=== PATIENT | female | born 1965 | race Caucasian/White ===

== ENCOUNTER 2019-04-27 15:12 | Inpatient (IN) | payer OTHER ==
--- NOTE | 2019-04-27 15:34 | PDOC ---
Attending Attestation - Resident Resident Name: Blake Estrella - ED Attending Attestation I have performed the following: I have examined & evaluated the patient, The case was reviewed & discussed with the resident, I agree w/resident's findings & plan, Exceptions are as noted
[2019-04-27 15:35] VITALS: BMI 36.4
[2019-04-27] MEDS ORDERED: ACETAMINOPHEN 1000 MG/100 ML VIAL (NON FORMULARY) IVPB ONE (15:58)
[2019-04-27] MEDS ORDERED: SODIUM CHLORIDE 1,000 ML IV SCH (16:00)
[2019-04-27] MEDS ORDERED: ACETAMINOPHEN INJECTION 100 ML IVPB ONE (16:30)
[2019-04-27 16:47] LABS: INR 1.05 (0.82-1.09); PROTHROMBIN TIME (PATIENT) 11.7 SEC (10.2-13.0)
[2019-04-27 16:52] LABS: ALBUMIN 3.3 g/dl (3.4-5.0); BILIRUBIN,TOTAL 0.3 mg/dl (0.2-1); CALCIUM 9.5 mg/dl (8.5-10); CREATININE 0.6 mg/dl (0.55-1.3); TOT PROT 6.3 g/dl (6.4-8.2)
[2019-04-27 16:54] LABS: BASO % 0.4 % (0-2.0); EOS % 1.2 % (0-4.5); HEMATOCRIT 37.5 % (32.4-45.2); HEMOGLOBIN 12.4 GM/dl (10.7-15.3); LYMPH % 30.5 % (8-40); MCH 30.5 pg (25.7-33.7); MCHC 33.2 g/dl (32.0-36.0); MEAN CELL VOLUME 91.7 fl (80-96); MONO % 3.8 % (3.8-10.2); NEUT % 64.1 % (42.8-82.8); PLATELET COUNT 298 K/MM3 (134-434); RBC 4.08 M/mm3 (3.60-5.2); RDW 15.2 % (11.6-15.6); WHITE BLOOD COUNT 8.7 K/mm3 (4.0-10.8)
--- NOTE | 2019-04-27 16:54 | PDOC ---
History of Present Illness - General Chief Complaint: Pain Stated Complaint: LOWER ABDOMINAL PAIN 3 DAYS Time Seen by Provider: 04/27/19 15:14 - History of Present Illness Initial Comments: 04/27/19 16:51 Chief complaint: Abdominal pain HPI: Mid abdominal pain for 3 days, becoming more severe. Nausea but no vomiting. Increasing abdominal girth, with obstipation, although she did pass a small amount of stool this morning. History of severe diverticulitis 5 years ago requiring hospitalization but no surgery. Multiple ventral hernia repairs. No history of bowel obstruction. Review of systems: Denies fever/chills, headache, URI symptoms, sore throat, cough, chest pain, shortness of breath, hematemesis, melena, bloody stool, vomiting. Taking small amounts of p.o. fluid. Admits mild nausea, pain in her abdomen with urination, though no manisha dysuria, no vaginal bleeding or discharge now, though she has had a light menses for the past 3 months after the cessation of menses 8 months before. Remainder of systems reviewed and negative Past medical history: Ventral hernia repairs x2, diverticulitis, non-insulin- dependent diabetes, hypertension. Despite her illnesses, she has no doctor and takes no medications. Social history: Patient is a nurse, reluctant to seek medical care, heavy lifetime smoker who supposedly quit 2 weeks ago, occasional social alcohol, no other drugs. stable home and family. Family history: Reviewed and noncontributory including early coronary artery disease, diabetes, GI disease, cancer Physical exam: Alert and oriented severely obese in mild to moderate distress due to abdominal pain but cooperative Afebrile, vital signs normal No pallor or icterus. PERRLA, fundi benign, ENT clear Neck supple without bruit mass or nodes Lungs clear to P&A with full breath sounds bilaterally, no wheezes rales or rhonchi CV regular without murmur rub or gallop pulses full and symmetric no JVD or edema no bruits Abdomen distended, but there are normal bowel sounds. Midline scar from multiple hernia repairs. Tenderness to palpation in the mid abdomen and all 4 quadrants, no definite localization but probably more severe in the left lower quadrant. There is a suggestion of guarding and rebound. Neurological intact Extremities normal Skin clear, no rash, adequate turgor Impression: Abdominal distention and tenderness, multiple prior surgeries, history of diverticulitis. Possible partial bowel obstruction, recurrent diverticulitis, or appendicitis, any of these conditions with or without perforation. Less likely would be a severe gastroenteritis, pyelonephritis, renal colic, mesenteric excess anemia, or recurrent hernia. Plan: Labs, CT, fluids and analgesics, further evaluation and treatment depending on results. 04/27/19 17:09 04/27/19 17:53 Past History - Past Medical History Allergies/Adverse Reactions: Allergies Allergy/AdvReac Type Severity Reaction Status Date / Time No Known Allergies Allergy Unverified 04/27/19 15:14 Home Medications: Ambulatory Orders Lansoprazole [Prevacid] 40 mg PO DAILY 04/28/19 Levothyroxine Sodium [Synthroid] 50 mcg PO DAILY 04/28/19 Lisinopril [Zestril] 40 mg PO DAILY 04/28/19 metFORMIN HCL [Metformin HCl] 500 mg PO BID 04/28/19 COPD: No Diabetes: Yes GI Disorders: Yes (DIVERTICULOSIS) HTN: Yes - Surgical History Cholecystectomy: Yes - Psycho Social/Smoking Cessation Hx Smoking History: Current every day smoker Number of Cigarettes Smoked Daily: 5 Information on smoking cessation initiated: Yes Hx Alcohol Use: No Drug/Substance Use Hx: No *Physical Exam - Vital Signs Last Vital Signs Temp Pulse Resp BP Pulse Ox 98.4 F 84 20 121/77 96 04/27/19 15:13 04/27/19 15:13 04/27/19 15:13 04/27/19 15:13 04/27/19 15:13 ED Treatment Course - LABORATORY CBC & Chemistry Diagram: 04/27/19 16:25 04/27/19 16:25 - ADDITIONAL ORDERS Additional order review: Laboratory Results 04/27/19 04/27/19 04/27/19 16:25 16:20 16:20 PT with INR 11.7 INR 1.05 Urine Color Yellow Urine Appearance Clear Urine pH 6.5 Urine Protein Negative Urine Glucose (UA) Negative Urine Ketones Trace Urine Blood Negative Urine Nitrite Negative Urine Bilirubin Negative Urine Urobilinogen 0.2 Ur Leukocyte Esterase Negative Urine HCG, Qual Negative - RADIOLOGY Radiology Studies Ordered: Category Date Time Status ABDOMEN & PELVIS CT W/O CONTR [CT] Stat CT Scan 04/27/19 15:58 Ordered - Medications Given in the ED: ED Medications Discontinued Medications Generic Name Dose Route Start Last Admin Trade Name Freq PRN Reason Stop Dose Admin Acetaminophen 1,000 mg 04/27/19 15:58 04/27/19 16:44 Ofirmev Injection - IVPB 04/27/19 15:59 1,000 mg ONCE ONE Administration Medical Decision Making - Medical Decision Making 04/27/19 18:56 Serum potassium is 2.8. Glucose is 149. Otherwise CBC chemistries and urine are without significant abnormalities. Potassium supplementation begun in the event that her symptoms are due to intestinal ileus from her low electrolytes. CT scan is pending. 04/27/19 18:57 Pain is controlled while resting comfortably on the stretcher. Movement or walking, however, exaggerates the pain. Signed out to Dr. Rivas at 7 PM pending results of CT and further medical evaluation. Discharge - Discharge Information Problems reviewed: Yes Clinical Impression/Diagnosis: Acute diverticulitis Condition: Stable - Admission Yes - Follow up/Referral - Patient Discharge Instructions - Post Discharge Activity
[2019-04-27 16:57] LABS: POTASSIUM 2.8 mmol/L (3.5-5.1)
[2019-04-27] MEDS ORDERED: KCL 10 MEQ IVPB 30 MEQ/300 ML INFUS.BAG IVPB ONE (17:32)
[2019-04-27] MEDS: KCL 10 MEQ IVPB 10 MEQ/100 ML INFUS.BAG IVPB SCH ×3 (17:38→19:53)
[2019-04-27] MEDS ORDERED: PIPERACILLIN/TAZOB 4.5 GM 4.5 GM in DEXTROSE 5%-WATER 100 ML IVPB ONE (20:57)
[2019-04-27] MEDS ORDERED: PIPERACILLIN/TAZOBACTAM 4.5 GM VIAL IVPB ONE (21:00)
[2019-04-27] MEDS ORDERED: ACETAMINOPHEN 1000 MG/100 ML VIAL (NON FORMULARY) IVPB PRN (21:49)
--- NOTE | 2019-04-27 22:01 | PDOC ---
*Physical Exam - Vital Signs Last Vital Signs Temp Pulse Resp BP Pulse Ox 98.4 F 78 16 134/83 99 04/27/19 20:54 04/27/19 20:54 04/27/19 20:54 04/27/19 20:54 04/27/19 20:54 Heart Score/ECG Review #1 ECG reviewed & interpreted by me at: 22:01 General ECG Interpretation: Sinus Rhythm, Normal Rate (76), Normal Intervals ( qtc 459), No acute ischemic changes ED Treatment Course - LABORATORY CBC & Chemistry Diagram: 04/27/19 16:25 04/27/19 16:25 - ADDITIONAL ORDERS Additional order review: Laboratory Results 04/27/19 04/27/19 04/27/19 16:25 16:25 16:25 PT with INR 11.7 INR 1.05 Sodium 138 Potassium 2.8 L* Chloride 100 Carbon Dioxide 26 Anion Gap 12 BUN 4.0 L Creatinine 0.6 Est GFR (CKD-EPI)AfAm 120.61 Est GFR (CKD-EPI)NonAf 104.06 Random Glucose 149 H Lactic Acid 1.0 Calcium 9.5 Total Bilirubin 0.3 AST 16 ALT 12 L Alkaline Phosphatase 62 Total Protein 6.3 L Albumin 3.3 L Lipase Urine Color Urine Appearance Urine pH Urine Protein Urine Glucose (UA) Urine Ketones Urine Blood Urine Nitrite Urine Bilirubin Urine Urobilinogen Ur Leukocyte Esterase Urine HCG, Qual 04/27/19 04/27/19 04/27/19 16:25 16:20 16:20 PT with INR INR Sodium Potassium Chloride Carbon Dioxide Anion Gap BUN Creatinine Est GFR (CKD-EPI)AfAm Est GFR (CKD-EPI)NonAf Random Glucose Lactic Acid Calcium Total Bilirubin AST ALT Alkaline Phosphatase Total Protein Albumin Lipase 55 L Urine Color Yellow Urine Appearance Clear Urine pH 6.5 Urine Protein Negative Urine Glucose (UA) Negative Urine Ketones Trace Urine Blood Negative Urine Nitrite Negative Urine Bilirubin Negative Urine Urobilinogen 0.2 Ur Leukocyte Esterase Negative Urine HCG, Qual Negative 04/27/19 16:25 RBC 4.08 MCV 91.7 MCHC 33.2 RDW 15.2 MPV 8.0 Neutrophils % 64.1 Lymphocytes % 30.5 Monocytes % 3.8 Eosinophils % 1.2 Basophils % 0.4 - Medications Given in the ED: ED Medications Discontinued Medications Generic Name Dose Route Start Last Admin Trade Name Freq PRN Reason Stop Dose Admin Acetaminophen 1,000 mg 04/27/19 15:58 04/27/19 16:44 Ofirmev Injection - IVPB 04/27/19 15:59 1,000 mg ONCE ONE Administration Potassium Chloride 10 meq in 100 mls @ 100 mls/hr 04/27/19 17:15 04/27/19 19: 53 Potassium Chloride 10 Meq Premix Ivpb - IVPB 04/27/19 20:14 100 mls/hr Q60M BILLY Administration Piperacillin Sod/Tazobactam 100 mls @ 200 mls/hr 04/27/19 20:57 04/27/19 21: 08 Sod 4.5 gm/ Dextrose IVPB 04/27/19 21:26 200 mls/hr ONCE ONE Administration Protocol Oxycodone/Acetaminophen 1 combo 04/27/19 21:46 04/27/19 21:56 Percocet 5/325 - PO 04/27/19 21:47 1 combo ONCE ONE Administration Medical Decision Making - Medical Decision Making 04/27/19 22:00 Vital signs stable, hemodynamically stable Patient is well-appearing Received signout on this 53-year-old female with history of diverticulitis presenting with symptoms of recurrent diverticulitis, labs were within normal limits except for hypokalemia which was repleted, urinalysis was clear. Plan at signout was to follow-up CT scan results. CT shows acute sigmoid diverticulitis with possible phlegmon versus abscess. Given history of recurrent diverticulitis, treated with IV antibiotics and admitted for further care. Signout given to OSIEL Cuellar, accepted for inpatient admission by Dr. Arteaga. Discharge - Discharge Information Problems reviewed: Yes Clinical Impression/Diagnosis: Acute diverticulitis Condition: Stable - Admission Yes - Follow up/Referral - Patient Discharge Instructions - Post Discharge Activity
[2019-04-27] MEDS: POTASSIUM CHLORIDE TABS 20 MEQ TABLET.ER (FP) PO SCH (23:56)
[2019-04-28] MEDS: morphine CARPU-JECT 2 MG/1 ML DISP.SYRIN IVPUSH PRN ×3 (01:01→17:00)
[2019-04-28] MEDS: POTASSIUM CHLORIDE TABS 20 MEQ TABLET.ER (FP) PO SCH (03:03)
[2019-04-28] MEDS ORDERED: PIPERACILLIN/TAZOBACTAM 3.375 GM VIAL IVPB ONE ×3 (03:06→16:33)
[2019-04-28] MEDS ORDERED: DEXTROSE 5%-WATER - 50 ML IVPB ONE ×2 (03:06→09:12)
[2019-04-28] MEDS: PIPERACILLIN/TAZOB 3.375 GM 3.375 GM in DEXTROSE 5%-WATER - 50 ML IVPB SCH ×2 (04:43→10:00)
[2019-04-28] MEDS ORDERED: PIPERACILLIN/TAZOB 3.375 GM 3.375 GM in SODIUM CHLORIDE 50 ML IVPB SCH (05:00)
[2019-04-28] MEDS: HEPARIN NA (PORCINE) 5,000 UNITS/ML 1ML VIAL SQ SCH ×3 (06:15→21:26)
[2019-04-28] MEDS ORDERED: LISINOPRIL 20 MG TABLET (FP) PO ONE ×2 (06:38→07:00)
[2019-04-28] MEDS ORDERED: metFORMIN HCL 500 MG TABLET (FP) PO SCH (07:00)
[2019-04-28] MEDS: LEVOTHYROXINE NA 50 MCG TABLET (FP) PO SCH (07:04)
[2019-04-28 07:31] LABS: BASO % 0.7 % (0-2.0); EOS % 2.2 % (0-4.5); HEMOGLOBIN 11.9 GM/dl (10.7-15.3); LYMPH % 34.6 % (8-40); MCH 31.3 pg (25.7-33.7); MCHC 33.9 g/dl (32.0-36.0); MEAN CELL VOLUME 92.1 fl (80-96); MEAN PLT VOLUME 8.1 fl (7.5-11.1); MONO % 8.1 % (3.8-10.2); NEUT % 54.4 % (42.8-82.8); PLATELET COUNT 274 K/MM3 (134-434); RDW 15.2 % (11.6-15.6)
[2019-04-28 07:39] LABS: BILIRUBIN,TOTAL 0.9 mg/dl (0.2-1); CALCIUM 8.8 mg/dl (8.5-10); CREATININE 0.6 mg/dl (0.55-1.3); MAGNESIUM 1.4 mg/dL (1.8-2.4); POTASSIUM 3.8 mmol/L (3.5-5.1); TOT PROT 5.6 g/dl (6.4-8.2)
--- NOTE | 2019-04-28 08:31 | HP ---
CHIEF COMPLAINT: Abdominal pain PCP: None HISTORY OF PRESENT ILLNESS: The patient is 53 year-old female with a PMH significant for HTN, diverticulitis (two prevous bouts 1994, 2009, no surgeries),Type II NIDDM, and hypothyroidism. Presented to the ED with 3 days of diffuse lower abdominal pain , similar to previous bouts of diverticulitis. Denies nausea, vomiting. Denies fever, sweats, chills. One episode of diarrhea early today. 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 Smoking: Current every day smoker Alcohol: Occasional ETOH use. Drugs: None reported. Family history: Mother 86 cardiac issues Father 74 complications from surgery Sister 63 liver cancer Allergies No Known Allergies Allergy (Unverified 04/27/19 15:14) HOME MEDICATIONS: Home Medications Medication Instructions Recorded Lansoprazole [Prevacid] 40 mg PO DAILY 04/28/19 Levothyroxine Sodium [Synthroid] 50 mcg PO DAILY 04/28/19 Lisinopril [Zestril] 40 mg PO DAILY 04/28/19 metFORMIN HCL [Metformin HCl] 500 mg PO BID 04/28/19 REVIEW OF SYSTEMS CONSTITUTIONAL: Absent: fever, chills, diaphoresis, generalized weakness, malaise, loss of appetite, weight change HEENT: Absent: rhinorrhea, nasal congestion, throat pain, throat swelling, difficulty swallowing, mouth swelling, ear pain, eye pain, visual changes CARDIOVASCULAR: Absent: chest pain, syncope, palpitations, irregular heart rate, lightheadedness , peripheral edema RESPIRATORY: Absent: cough, shortness of breath, dyspnea with exertion, orthopnea, wheezing, stridor, hemoptysis GASTROINTESTINAL:+abdominal pain, diarrhea x 1 episode Absent: abdominal distension, vomiting, diarrhea, constipation, melena, hematochezia GENITOURINARY: Absent: dysuria, frequency, urgency, hesitancy, hematuria, flank pain, genital pain MUSCULOSKELETAL: Absent: myalgia, arthralgia, joint swelling, back pain, neck pain SKIN: Absent: rash, itching, pallor HEMATOLOGIC/IMMUNOLOGIC: Absent: easy bleeding, easy bruising, lymphadenopathy, frequent infections ENDOCRINE: Absent: unexplained weight gain, unexplained weight loss, heat intolerance, cold intolerance NEUROLOGIC: Absent: headache, focal weakness or paresthesias, dizziness, unsteady gait, seizure, mental status changes, bladder or bowel incontinence PSYCHIATRIC: Absent: anxiety, depression, suicidal or homicidal ideation, hallucinations. PHYSICAL EXAMINATION Vital Signs - 24 hr 04/27/19 04/27/19 04/27/19 15:13 20:54 23:16 Temperature 98.4 F 98.4 F 98.8 F Pulse Rate 84 Pulse Rate [ 78 75 Left Radial] Respiratory 20 16 14 Rate Blood Pressure 121/77 Blood Pressure 134/83 147/85 [Right Arm] O2 Sat by Pulse 96 99 98 Oximetry (%) 04/27/19 04/28/19 04/28/19 23:30 00:10 04:00 Temperature 98.7 F 98.2 F Pulse Rate 74 74 Pulse Rate [ Left Radial] Respiratory 18 20 Rate Blood Pressure 157/77 155/92 Blood Pressure [Right Arm] O2 Sat by Pulse 95 94 L Oximetry (%) GENERAL: Awake, alert, and fully oriented, in no acute distress. HEAD: Normal with no signs of trauma. EYES: Pupils equal, round and reactive to light, extraocular movements intact, sclera anicteric, conjunctiva clear. LUNGS: Breath sounds equal, clear to auscultation bilaterally. No wheezes, and no crackles. No accessory muscle use. HEART: Regular rate and rhythm, normal S1 and S2 ABDOMEN: Soft, distended, diffuse tenderness, focal tenderness over LLQ, normoactive bowel sounds MUSCULOSKELETAL: Normal range of motion at all joints. No bony deformities or tenderness. No CVA tenderness. UPPER EXTREMITIES: 2+ pulses, warm, well-perfused. No cyanosis. No clubbing. No peripheral edema. LOWER EXTREMITIES: 2+ pulses, warm, well-perfused. No calf tenderness. No peripheral edema. NEUROLOGICAL: Cranial nerves II-XII intact. Normal speech. Normal gait. PSYCHIATRIC: Cooperative. Good eye contact. Appropriate mood and affect. SKIN: Warm, dry, normal turgor Laboratory Results - last 24 hr 04/27/19 04/27/19 04/27/19 16:20 16:20 16:25 WBC RBC Hgb Hct MCV MCH MCHC RDW Plt Count MPV Absolute Neuts (auto) Neutrophils % Lymphocytes % Monocytes % Eosinophils % Basophils % PT with INR INR Sodium Potassium Chloride Carbon Dioxide Anion Gap BUN Creatinine Est GFR (CKD-EPI)AfAm Est GFR (CKD-EPI)NonAf POC Glucometer Random Glucose Lactic Acid Calcium Magnesium Total Bilirubin AST ALT Alkaline Phosphatase Total Protein Albumin Lipase 55 L Urine Color Yellow Urine Appearance Clear Urine pH 6.5 Urine Protein Negative Urine Glucose (UA) Negative Urine Ketones Trace Urine Blood Negative Urine Nitrite Negative Urine Bilirubin Negative Urine Urobilinogen 0.2 Ur Leukocyte Esterase Negative Urine HCG, Qual Negative 04/27/19 04/27/19 04/27/19 16:25 16:25 16:25 WBC 8.7 RBC 4.08 Hgb 12.4 Hct 37.5 MCV 91.7 MCH 30.5 MCHC 33.2 RDW 15.2 Plt Count 298 MPV 8.0 Absolute Neuts (auto) 5.6 Neutrophils % 64.1 Lymphocytes % 30.5 Monocytes % 3.8 Eosinophils % 1.2 Basophils % 0.4 PT with INR INR Sodium 138 Potassium 2.8 L* Chloride 100 Carbon Dioxide 26 Anion Gap 12 BUN 4.0 L Creatinine 0.6 Est GFR (CKD-EPI)AfAm 120.61 Est GFR (CKD-EPI)NonAf 104.06 POC Glucometer Random Glucose 149 H Lactic Acid 1.0 Calcium 9.5 Magnesium Total Bilirubin 0.3 AST 16 ALT 12 L Alkaline Phosphatase 62 Total Protein 6.3 L Albumin 3.3 L Lipase Urine Color Urine Appearance Urine pH Urine Protein Urine Glucose (UA) Urine Ketones Urine Blood Urine Nitrite Urine Bilirubin Urine Urobilinogen Ur Leukocyte Esterase Urine HCG, Qual 04/27/19 04/28/19 04/28/19 16:25 06:29 06:52 WBC 7.0 RBC 3.80 Hgb 11.9 Hct 35.0 MCV 92.1 MCH 31.3 MCHC 33.9 RDW 15.2 Plt Count 274 MPV 8.1 Absolute Neuts (auto) 3.8 Neutrophils % 54.4 Lymphocytes % 34.6 Monocytes % 8.1 Eosinophils % 2.2 Basophils % 0.7 PT with INR 11.7 INR 1.05 Sodium Potassium Chloride Carbon Dioxide Anion Gap BUN Creatinine Est GFR (CKD-EPI)AfAm Est GFR (CKD-EPI)NonAf POC Glucometer 118 Random Glucose Lactic Acid Calcium Magnesium Total Bilirubin AST ALT Alkaline Phosphatase Total Protein Albumin Lipase Urine Color Urine Appearance Urine pH Urine Protein Urine Glucose (UA) Urine Ketones Urine Blood Urine Nitrite Urine Bilirubin Urine Urobilinogen Ur Leukocyte Esterase Urine HCG, Qual 04/28/19 06:52 WBC RBC Hgb Hct MCV MCH MCHC RDW Plt Count MPV Absolute Neuts (auto) Neutrophils % Lymphocytes % Monocytes % Eosinophils % Basophils % PT with INR INR Sodium 139 Potassium 3.8 Chloride 102 Carbon Dioxide 28 Anion Gap 9 BUN 5.0 L Creatinine 0.6 Est GFR (CKD-EPI)AfAm 120.61 Est GFR (CKD-EPI)NonAf 104.06 POC Glucometer Random Glucose 124 H Lactic Acid Calcium 8.8 Magnesium 1.4 L Total Bilirubin 0.9 AST 33 ALT 15 Alkaline Phosphatase 58 Total Protein 5.6 L Albumin 3.0 L Lipase Urine Color Urine Appearance Urine pH Urine Protein Urine Glucose (UA) Urine Ketones Urine Blood Urine Nitrite Urine Bilirubin Urine Urobilinogen Ur Leukocyte Esterase Urine HCG, Qual ASSESSMENT/PLAN The patient is 53 year-old female with a PMH significant for HTN, diverticulitis , Type II NIDDM, and hypothyroidism. Admitted for acute sigmoid diverticulitis. Acute sigmoid diverticulitis with abscess --04/27 CTAP: acute sigmoid diverticulis with phlegmon/abscess --two previous episodes 1994, 2008 (no surgeries) --start Zosyn --IV fluids --ID to follow --surgery to follow Hypertension --issue of medication compliance, "runs high" at home --continue lisinopril Type II NIDDM --Novolog sliding scale coverge Hypothyroidism --continue levothyroxine --thyroid studies pending Hypomagnesemia --replete FEN Fluids: NS@125mL/hr Electrolytes: replete as indicated Nutrition: NPO DVT prophylaxis: subq heparin Dispo: continues to require inpatient care. Full code. Visit type - Emergency Visit Emergency Visit: Yes ED Registration Date: 04/28/19 Care time: The patient presented to the Emergency Department on the above date and was hospitalized for further evaluation of their emergent condition. - New Patient This patient is new to me today: Yes Date on this admission: 04/28/19 - Critical Care Critical Care patient: No
[2019-04-28 08:34] LABS: INR 1.13 (0.82-1.09); PROTHROMBIN TIME (PATIENT) 12.6 SEC (10.2-13.0)
[2019-04-28] MEDS ORDERED: MAGNESIUM SULF 50% (8.12 MEQ/2 ML-1 GM VIAL) IVPB ONE (10:23)
[2019-04-28] MEDS: LISINOPRIL 20 MG TABLET (FP) PO SCH (10:45)
[2019-04-28] MEDS ORDERED: MAGNESIUM SULFATE IN WATER 2 GM/50 ML IVPB IVPB ONE (11:00)
[2019-04-28] MEDS ORDERED: SODIUM CHLORIDE 1,000 ML IV SCH (11:30)
[2019-04-28] MEDS ORDERED: oxyCODONE HCL 5 MG TABLET PO PRN (12:34)
[2019-04-28] MEDS: INSULIN (NOVOLOG) ASPART 100 UNITS/ML 10ML VIAL SQ SCH ×3 (12:58→22:21)
--- NOTE | 2019-04-28 13:52 | CON.ID ---
Consult Consult Specialty:: infectious diseases Referred by:: Peg Reason for Consultation:: abd pain/diverticulitis - History of Present Illness Chief Complaint: abd pain - Alcohol/Substance Use Hx Alcohol Use: No - Smoking History Smoking history: Current every day smoker Aproximately how many cigarettes per day: 5 Home Medications - Allergies Allergies/Adverse Reactions: Allergies Allergy/AdvReac Type Severity Reaction Status Date / Time No Known Allergies Allergy Unverified 04/27/19 15:14 - Home Medications Home Medications: Ambulatory Orders Lansoprazole [Prevacid] 40 mg PO DAILY 04/28/19 Levothyroxine Sodium [Synthroid] 50 mcg PO DAILY 04/28/19 Lisinopril [Zestril] 40 mg PO DAILY 04/28/19 metFORMIN HCL [Metformin HCl] 500 mg PO BID 04/28/19 Physical Exam Vital Signs: Vital Signs Temperature 98.3 F 04/28/19 10:00 Pulse Rate 74 04/28/19 10:00 Respiratory Rate 18 04/28/19 10:00 Blood Pressure 181/100 H 04/28/19 10:00 O2 Sat by Pulse Oximetry (%) 94 L 04/28/19 04:00 Labs: CBC, BMP 04/28/19 06:52 04/28/19 06:52
--- NOTE | 2019-04-28 14:56 | CONS ---
DATE OF CONSULTATION: 04/28/2019 REASON FOR CONSULTATION: Acute diverticulitis. This is an inpatient consultation at request of the hospitalist service. BRIEF HISTORY: This is a 53-year-old female who had been seen in an ER many years ago for acute diverticulitis, but not admitted. Presents with 4-day history of abdominal pain that she felt was due to constipation. However, it did not improve. She came to in to the [place] emergency room where her white blood cell count was noted to be normal. She went for a CAT scan of her abdomen and pelvis, which shows diverticulitis of the sigmoid colon, possibility of a small phlegmon versus abscess was noted. She was admitted to the hospital. Placed on antibiotic. She feels somewhat better, but still has some pain. She has had a bowel movement. She has had no fever. Request today is for surgical evaluation. Her last colonoscopy was approximately 10 years ago and she said she is due. PAST MEDICAL HISTORY: Significant for diabetes, hypertension. PAST SURGICAL HISTORY: Includes multiple ventral hernia repairs with mesh in the upper abdomen, a cholecystectomy, and 3 sections. FAMILY HISTORY: Noncontributory. HOME MEDICATION: Includes Prevacid, Synthroid, lisinopril, and metformin. SOCIAL HISTORY: Positive for tobacco. Positive for occasional alcohol consumption. She has been encouraged to quit. REVIEW OF SYSTEMS: For general, admits to fatigue. For cardiac, denies chest pain. For respiratory, denies shortness of breath. For GI, denies nausea, denies vomiting, denies diarrhea, denies blood in her stool, denies recent weight loss. For , denies dysuria. For musculoskeletal, denies joint pain. For psychiatric, denies anxiety, depression, hearing voices. PHYSICAL EXAMINATION: General: On physical exam, this is a morbidly obese, 54-year-old female in no distress. Vital Signs: She is afebrile. HEENT: Her head is normocephalic. Her sclerae are anicteric. Neck: Supple. Chest: Clear. Abdomen: Soft. She has left lateral and left lower quadrant tenderness with minimal rebound and no guarding. She has multiple surgical scars; one in the midline above her umbilicus from her previous hernia repairs and there is perhaps a recurrence, but it is difficult to tell. She also has a Pfannenstiel incision, consistent with her sections. Extremities: Have trace edema. LABORATORY: On review, her white blood cell count is 8.7. ASSESSMENT: This is a 53-year-old female with a second episode of diverticulitis. It is possibly complicated. She currently does not appear toxic. I have, nevertheless, offered her exploratory surgery to remove this segment. It is also possible that this is a malignancy, based on CT findings and that she has not had a recent colonoscopy. She understands that is a possibility. She declined surgery, because it would entail a colostomy in the acute setting. Therefore, I will continue medical management. I will continue n.p.o. Continue IV antibiotics. Could possibly start liquids tomorrow. Would treat her as if this is complicated with 5 days of intravenous antibiotics. If she is not completely better after 5 days, would repeat CAT scan to look for evolution of an abscess that possibly could be drained by Interventional Radiology service. As an outpatient, she will need a GI evaluation for colonoscopy to rule out a malignancy. She could consider an interval colectomy to prevent future recurrence. However, without confirmation at this time that this was a complicated attack, I am reluctant to recommend such a major prophylactic surgery. Patient understands that this could be cancer, that by not having surgery she is delaying the diagnosis of this potential cancer, and could ultimately have a worse outcome. At this point, she is nontoxic. I have explained the plan to Una Cuellar, her provider. DO LEXY TAYLOR/[id number]
--- NOTE | 2019-04-28 15:16 | EKG ---
Test Reason : Blood Pressure : / mmHG Vent. Rate : 076 BPM Atrial Rate : 076 BPM P-R Int : 154 ms QRS Dur : 102 ms QT Int : 408 ms P-R-T Axes : 038 044 054 degrees QTc Int : 459 ms NORMAL SINUS RHYTHM NONSPECIFIC T WAVE ABNORMALITY ABNORMAL ECG NO PREVIOUS ECGS AVAILABLE Confirmed by GORGE COLINDRES, ROSSY ([id number]) on 04/28/2019 3:16:27 PM Referred By: MD RESENDIZ Confirmed By:ROSSY PENNINGTON MD
[2019-04-28] MEDS ORDERED: SODIUM CHLORIDE 50 ML IVPB ONE (16:33)
[2019-04-28] MEDS: PIPERACILLIN/TAZOB 3.375 GM 3.375 GM in SODIUM CHLORIDE 50 ML IVPB SCH (17:37)
[2019-04-29] MEDS ORDERED: SODIUM CHLORIDE 50 ML IVPB ONE ×4 (00:47→23:41)
[2019-04-29] MEDS ORDERED: PIPERACILLIN/TAZOBACTAM 3.375 GM VIAL IVPB ONE ×4 (00:47→23:40)
[2019-04-29] MEDS: PIPERACILLIN/TAZOB 3.375 GM 3.375 GM in SODIUM CHLORIDE 50 ML IVPB SCH ×3 (01:35→18:02)
[2019-04-29] MEDS: LEVOTHYROXINE NA 50 MCG TABLET (FP) PO SCH (06:01)
[2019-04-29] MEDS: HEPARIN NA (PORCINE) 5,000 UNITS/ML 1ML VIAL SQ SCH ×3 (06:02→22:19)
[2019-04-29] MEDS: INSULIN (NOVOLOG) ASPART 100 UNITS/ML 10ML VIAL SQ SCH ×4 (06:07→22:11)
[2019-04-29 07:59] LABS: ALBUMIN 2.9 g/dl (3.4-5.0); BILIRUBIN,TOTAL 0.8 mg/dl (0.2-1); CALCIUM 8.1 mg/dl (8.5-10); CREATININE 0.5 mg/dl (0.55-1.3); MAGNESIUM 1.6 mg/dL (1.8-2.4); POTASSIUM 3.6 mmol/L (3.5-5.1); TOT PROT 5.3 g/dl (6.4-8.2)
[2019-04-29 08:12] LABS: BASO % 0.5 % (0-2.0); EOS % 2.5 % (0-4.5); HEMATOCRIT 32.8 % (32.4-45.2); HEMOGLOBIN 10.9 GM/dl (10.7-15.3); LYMPH % 26.5 % (8-40); MCH 30.8 pg (25.7-33.7); MCHC 33.2 g/dl (32.0-36.0); MEAN CELL VOLUME 92.8 fl (80-96); MEAN PLT VOLUME 7.9 fl (7.5-11.1); MONO % 6.7 % (3.8-10.2); NEUT % 63.8 % (42.8-82.8); PLATELET COUNT 271 K/MM3 (134-434); RBC 3.53 M/mm3 (3.60-5.2); RDW 15.5 % (11.6-15.6); WHITE BLOOD COUNT 6.3 K/mm3 (4.0-10.8)
--- NOTE | 2019-04-29 08:18 | PN ---
Progress Note (short form) - Note Progress Note: Surgery Patient being followed for diverticulitis. Patient stated her abdominal pain is improved. She is passing gas but no diarrhea. She denies any CP, SOB, N/V, fever or chills. Vital Signs Temp 98.6 F 04/29/19 04:00 Pulse 68 04/29/19 04:00 Resp 18 04/29/19 04:00 BP 160/87 04/29/19 04:00 Pulse Ox 99 04/28/19 20:00 Intake & Output 04/28/19 04/28/19 04/29/19 11:59 23:59 11:59 Intake Total 300 1600 Balance 300 1600 Weight 225 lb 0.2 oz Intake: IV 1500 Normal Saline - 1,000 ml 1500 @ 125 mls/hr IV ASDIR [facility] Rx#:[id number] IVPB 300 50 Oral 0 50 Other: Voiding Method Toilet Toilet # Unmeasured Voids Void 1 1 2 Bowel Movement Yes Yes Yes # Bowel Movements 1 1 1 Weight Measurement Method Standing Scale CBC, BMP 04/29/19 07:07 04/29/19 07:07 PE: A&Ox3, NAD Unlabored resp on RA ABD: soft, with mild TTP at LLQ, ND with question of hernia at previous midline hernia repair, no masses or lesions, no guarding. Problem List - Problems (1) Acute diverticulitis Assessment/Plan: Patient improving -Advance diet to full liquids -IV abx per ID -Encourage OOB as tolerated -Daily IS Evaluation and plan discussed with Dr Forte Code(s): K57.92 - DVTRCLI OF INTEST, PART UNSP, W/O PERF OR ABSCESS W/O BLEED
--- NOTE | 2019-04-29 08:51 | PN ---
Progress Note, Physician History of Present Illness: Patient seen and examined at bedside. States she feels better today. Afebrile. No leukocytosis. last episode of diarrhea yesterday. She is hungry. BP not well controlled. She denies nausea vomiting fever chills chest pain SOB urinary symptoms dizziness or lightheadedness. - Current Medication List Current Medications: Active Medications Acetaminophen (Ofirmev Injection -) 1,000 mg IVPB Q6H PRN PRN Reason: PAIN LEVEL 1-5 Last Admin: 04/28/19 12:45 Dose: 1,000 mg Heparin Sodium (Porcine) (Heparin -) 5,000 unit SQ TID [facility] Last Admin: 04/29/19 06:02 Dose: 5,000 unit Hydrochlorothiazide (Hctz -) 25 mg PO DAILY [facility] Piperacillin Sod/Tazobactam (Sod 3.375 gm/ Sodium Chloride) 50 mls @ 100 mls/ hr IVPB Q8H-IV [facility]; Protocol Last Admin: 04/29/19 01:35 Dose: 100 mls/hr Insulin Aspart (Novolog Vial) 0 units SQ ACHS [facility]; Protocol Last Admin: 04/29/19 06:07 Dose: Not Given Levothyroxine Sodium (Synthroid -) 50 mcg PO DAILY@0700 [facility] Last Admin: 04/29/19 06:01 Dose: 50 mcg Lisinopril (Prinivil) 40 mg PO DAILY [facility] Last Admin: 04/28/19 10:45 Dose: 40 mg Morphine Sulfate (Morphine Injection -) 2 mg IVPUSH Q4H PRN PRN Reason: PAIN LEVEL 6-10 Stop: 04/30/19 00:26 Last Admin: 04/28/19 17:00 Dose: 2 mg Oxycodone/Acetaminophen (Percocet 5/325 -) 1 combo PO Q6H PRN PRN Reason: PAIN LEVEL 1-5 Last Admin: 04/29/19 06:01 Dose: 1 combo - Objective Vital Signs: Vital Signs Temperature 98.6 F 04/29/19 04:00 Pulse Rate 68 04/29/19 04:00 Respiratory Rate 18 04/29/19 04:00 Blood Pressure 160/87 04/29/19 04:00 O2 Sat by Pulse Oximetry (%) 99 04/29/19 08:26 Constitutional: Yes: No Distress, Calm, Obese Eyes: Yes: WNL, EOM Intact Neck: Yes: Supple Cardiovascular: Yes: Regular Rate and Rhythm Respiratory: Yes: WNL, Regular, CTA Bilaterally Gastrointestinal: Yes: Normal Bowel Sounds, Soft, Tenderness (mild LLQ tenderness) Edema: Yes Edema: LLE: Trace, RLE: Trace Neurological: Yes: Alert, Oriented Psychiatric: Yes: Alert, Oriented Labs: CBC, BMP 04/29/19 07:07 04/29/19 07:07 INR, PTT INR 1.13 (0.82-1.09) 04/28/19 06:52 - ....Imaging Ultrasound: Report Reviewed Impression/Plan Impression/Plan: The patient is 53 year-old female with a PMH significant for HTN, diverticulitis , Type II NIDDM, and hypothyroidism who presents to the hospital with abdominal pain and diarrhea found to have acute sigmoid diverticulitis. Acute sigmoid diverticulitis with abscess vs phlegmon ID consult noted continue zosyn per ID Stop IVF start FLD per Sx and advance as tolerated-discussed with surgery PA face to face surgery consult noted and appreciated no leukocytosis or fever refer to GI as outpatient Hypertension states she runs about 150s-160s systolic at home continue lisinopril 40mg daily will start HCTZ 25mg po daily-states used to be on it with lisinopril and BP was well controlled hasnt seen PCP in a while IVF likely contributing as she is on NS @ 125ml/hr and she now has some lower extremity edema. Will stop IVF. Type II NIDDM controlled continue to hold metformin and continue ISS Hypothyroidism continue synthroid 50mcg daily Hypomagnesemia will give 400mg of magnesium oxide BID for 2 doses DVT prophylaxis: subq heparin can likely discharge tomorrow with PO antibiotics as long as afebrile, pain has resolved, tolerating PO intake, and diarrhea resolved. counselled on importance of medication compliance and regular follow up with PCP for preventative care Visit type - Emergency Visit Emergency Visit: Yes ED Registration Date: 04/28/19 Care time: The patient presented to the Emergency Department on the above date and was hospitalized for further evaluation of their emergent condition. - New Patient This patient is new to me today: Yes Date on this admission: 04/29/19 - Critical Care Critical Care patient: No
[2019-04-29] MEDS: LISINOPRIL 20 MG TABLET (FP) PO SCH (09:56)
[2019-04-29] MEDS: HYDROCHLOROTHIAZIDE 25 MG TABLET (FP) PO SCH (09:56)
[2019-04-29] MEDS: MAGNESIUM OXIDE 400 MG TABLET (FP) PO SCH ×2 (09:58→22:21)
--- NOTE | 2019-04-29 15:49 | PN ---
Progress Note, Physician History of Present Illness: improving still with abd pain - Current Medication List Current Medications: Active Medications Acetaminophen (Ofirmev Injection -) 1,000 mg IVPB Q6H PRN PRN Reason: PAIN LEVEL 1-5 Last Admin: 04/28/19 12:45 Dose: 1,000 mg Heparin Sodium (Porcine) (Heparin -) 5,000 unit SQ TID [facility] Last Admin: 04/29/19 14:39 Dose: Not Given Hydrochlorothiazide (Hctz -) 25 mg PO DAILY [facility] Last Admin: 04/29/19 09:56 Dose: 25 mg Piperacillin Sod/Tazobactam (Sod 3.375 gm/ Sodium Chloride) 50 mls @ 100 mls/ hr IVPB Q8H-IV [facility]; Protocol Last Admin: 04/29/19 09:58 Dose: 100 mls/hr Insulin Aspart (Novolog Vial) 0 units SQ ACHS [facility]; Protocol Last Admin: 04/29/19 11:50 Dose: Not Given Levothyroxine Sodium (Synthroid -) 50 mcg PO DAILY@0700 [facility] Last Admin: 04/29/19 06:01 Dose: 50 mcg Lisinopril (Prinivil) 40 mg PO DAILY [facility] Last Admin: 04/29/19 09:56 Dose: 40 mg Magnesium Oxide (Mag-Ox -) 400 mg PO BID [facility] Stop: 04/29/19 22:01 Last Admin: 04/29/19 09:58 Dose: 400 mg Morphine Sulfate (Morphine Injection -) 2 mg IVPUSH Q4H PRN PRN Reason: PAIN LEVEL 6-10 Stop: 04/30/19 00:26 Last Admin: 04/28/19 17:00 Dose: 2 mg Oxycodone/Acetaminophen (Percocet 5/325 -) 1 combo PO Q6H PRN PRN Reason: PAIN LEVEL 1-5 Last Admin: 04/29/19 11:49 Dose: 1 combo - Objective Vital Signs: Vital Signs Temperature 98.0 F 04/29/19 14:16 Pulse Rate 66 04/29/19 14:16 Respiratory Rate 17 04/29/19 14:16 Blood Pressure 151/80 04/29/19 14:16 O2 Sat by Pulse Oximetry (%) 95 04/29/19 14:16 Constitutional: Yes: Calm, Mild Distress Cardiovascular: Yes: S1, S2 Respiratory: Yes: Regular, CTA Bilaterally Gastrointestinal: Yes: Soft, Hypoactive Bowel Sounds, Tenderness Musculoskeletal: Yes: WNL Extremities: Yes: WNL Neurological: Yes: Alert, Oriented Psychiatric: Yes: Alert, Oriented Labs: CBC, BMP 04/29/19 07:07 04/29/19 07:07 INR, PTT INR 1.13 (0.82-1.09) 04/28/19 06:52 Assessment/Plan 53 year-old female with a PMH significant for HTN, diverticulitis, Type II NIDDM , and hypothyroidism. Admitted for acute sigmoid diverticulitis. Acute sigmoid diverticulitis with abscess Hypertension Type II NIDDM Hypothyroidism Hypomagnesemia plan continue current mgmt abx rest as per the team
[2019-04-30] MEDS: PIPERACILLIN/TAZOB 3.375 GM 3.375 GM in SODIUM CHLORIDE 50 ML IVPB SCH ×2 (01:48→09:36)
[2019-04-30] MEDS: HEPARIN NA (PORCINE) 5,000 UNITS/ML 1ML VIAL SQ SCH (06:10)
[2019-04-30] MEDS: INSULIN (NOVOLOG) ASPART 100 UNITS/ML 10ML VIAL SQ SCH ×2 (06:31→11:41)
[2019-04-30] MEDS: LEVOTHYROXINE NA 50 MCG TABLET (FP) PO SCH (07:17)
[2019-04-30 08:37] LABS: BASO % 0.7 % (0-2.0); EOS % 2.6 % (0-4.5); HEMATOCRIT 40.5 % (32.4-45.2); HEMOGLOBIN 13.3 GM/dl (10.7-15.3); MCH 30.4 pg (25.7-33.7); MCHC 32.7 g/dl (32.0-36.0); MEAN CELL VOLUME 92.9 fl (80-96); MEAN PLT VOLUME 7.9 fl (7.5-11.1); MONO % 7.7 % (3.8-10.2); PLATELET COUNT 339 K/MM3 (134-434); RBC 4.36 M/mm3 (3.60-5.2); RDW 15.7 % (11.6-15.6); WHITE BLOOD COUNT 6.3 K/mm3 (4.0-10.8)
[2019-04-30 08:40] LABS: CALCIUM 9.7 mg/dl (8.5-10); CREATININE 0.6 mg/dl (0.55-1.3); POTASSIUM 3.9 mmol/L (3.5-5.1)
[2019-04-30] MEDS ORDERED: PIPERACILLIN/TAZOBACTAM 3.375 GM VIAL IVPB ONE (09:22)
[2019-04-30] MEDS ORDERED: SODIUM CHLORIDE 50 ML IVPB ONE (09:23)
[2019-04-30] MEDS: HYDROCHLOROTHIAZIDE 25 MG TABLET (FP) PO SCH (09:35)
[2019-04-30] MEDS: LISINOPRIL 20 MG TABLET (FP) PO SCH (09:36)
[2019-04-30 09:59] VITALS: BP 159/88; PULSE 66; TEMP 97.2
--- NOTE | 2019-04-30 11:36 | PN ---
Progress Note, Physician History of Present Illness: Pt seen and examined. She states she is feeling much better and would like to go home. Tolerating full liquid diet, denies abd pain. No recent diarrhea. - Current Medication List Current Medications: Active Medications Acetaminophen (Ofirmev Injection -) 1,000 mg IVPB Q6H PRN PRN Reason: PAIN LEVEL 1-5 Last Admin: 04/28/19 12:45 Dose: 1,000 mg Heparin Sodium (Porcine) (Heparin -) 5,000 unit SQ TID [facility]S [facility] Last Admin: 04/30/19 06:10 Dose: Not Given Hydrochlorothiazide (Hctz -) 25 mg PO DAILY [facility] 234 [facility]S [facility] Last Admin: 04/30/19 09:35 Dose: 25 mg Piperacillin Sod/Tazobactam (Sod 3.375 gm/ Sodium Chloride) 50 mls @ 100 mls/ hr IVPB Q8H-IV [facility]; Protocol Last Admin: 04/30/19 09:36 Dose: 100 mls/hr Insulin Aspart (Novolog Vial) 0 units SQ ACHS [facility] 234 B[facility]S AT [facility]; Protocol Last Admin: 04/30/19 06:31 Dose: Not Given Levothyroxine Sodium (Synthroid -) 50 mcg PO DAILY@0700 [facility] 234 [facility]S AT [facility] Last Admin: 04/30/19 07:17 Dose: 50 mcg Lisinopril (Prinivil) 40 mg PO DAILY [facility] 234 [facility]S AT [facility] Last Admin: 04/30/19 09:36 Dose: 40 mg Oxycodone/Acetaminophen (Percocet 5/325 -) 1 combo PO Q6H PRN PRN Reason: PAIN LEVEL 1-5 Last Admin: 04/29/19 20:15 Dose: 1 combo - Objective Vital Signs: Vital Signs Temperature 97.2 F L 04/30/19 09:58 Pulse Rate 66 04/30/19 09:58 Respiratory Rate 18 04/30/19 09:58 Blood Pressure 159/88 04/30/19 09:58 O2 Sat by Pulse Oximetry (%) 98 04/30/19 09:58 Constitutional: Yes: No Distress, Calm Cardiovascular: Yes: Regular Rate and Rhythm Respiratory: Yes: Regular Gastrointestinal: Yes: Normal Bowel Sounds, Soft Genitourinary: Yes: WNL Integumentary: Yes: WNL Labs: CBC, BMP 04/30/19 07:53 04/30/19 07:53 INR, PTT INR 1.13 (0.82-1.09) 04/28/19 06:52 Microbiology 04/27/19 16:35 Blood - Peripheral Venous Blood Culture - Preliminary NO GROWTH OBTAINED AFTER 48 HOURS, INCUBATION TO CONTINUE FOR 3 DAYS. 04/27/19 16:25 Blood - Peripheral Venous Blood Culture - Preliminary NO GROWTH OBTAINED AFTER 48 HOURS, INCUBATION TO CONTINUE FOR 3 DAYS. 04/27/19 16:20 Urine - Urine Clean Catch Urine Culture - Final NO GROWTH OBTAINED - ....Imaging Cat Scan: Report Reviewed Problem List - Problems (1) Acute diverticulitis Code(s): K57.92 - DVTRCLI OF INTEST, PART UNSP, W/O PERF OR ABSCESS W/O BLEED Assessment/Plan Acute diverticulitis with phlegmon vs. small abscess -- Pt is afebrile, abd pain resolved -- tolerating full liquid diet -- if tolerates regular diet and cleared for discharge would recommend Levaquin 750 mg po daily and Flagyl 500 mg po TID to complete total of 14 days of antibiotics. Today is day #3 of Zosyn -- Will need repeat CT Abd as outpt to assess for resolution of inflammation/ collection, outpt follow up -- If d/c home pt instructed to return if abd pain or fever returns case d/w Dr. Escalante
--- NOTE | 2019-04-30 12:27 | DS ---
Physical Exam: SUBJECTIVE: Patient seen and examined at bedside. She denies nausea vomiting fever chills chest pain SOB diarrhea or constipation. She is tolerating FLD. Wants to go home. OBJECTIVE: Vital Signs Period Temp Pulse Resp BP Sys/Davidson Pulse Ox Last 24 Hr 97.2 F-99.1 F 60-78 17-18 151-178/73-91 95-100 PHYSICAL EXAM GENERAL: The patient is awake, alert, and fully oriented, in no acute distress. ENT: moist mucous membranes. NECK: supple. LUNGS: Breath sounds equal, clear to auscultation bilaterally, no wheezes, no crackles, no accessory muscle use. HEART: Regular rate and rhythm, S1, S2 without murmur, rub or gallop. ABDOMEN: Soft, obese, nontender, nondistended, normoactive bowel sounds, no guarding, no rebound EXTREMITIES: no edema. NEUROLOGICAL: Cranial nerves II through XII grossly intact. Normal speech, gait not observed. PSYCH: Normal mood, normal affect. SKIN: Warm, dry LABS Laboratory Results - last 24 hr 04/29/19 04/29/19 04/30/19 16:52 22:09 06:28 WBC RBC Hgb Hct MCV MCH MCHC RDW Plt Count MPV Absolute Neuts (auto) Neutrophils % Lymphocytes % Monocytes % Eosinophils % Basophils % Sodium Potassium Chloride Carbon Dioxide Anion Gap BUN Creatinine Est GFR (CKD-EPI)AfAm Est GFR (CKD-EPI)NonAf POC Glucometer 146 167 145 Random Glucose Calcium Magnesium 04/30/19 04/30/19 04/30/19 07:53 07:53 11:34 WBC 6.3 RBC 4.36 Hgb 13.3 Hct 40.5 D MCV 92.9 MCH 30.4 MCHC 32.7 RDW 15.7 H Plt Count 339 MPV 7.9 Absolute Neuts (auto) 3.6 Neutrophils % 57.0 Lymphocytes % 32.0 Monocytes % 7.7 Eosinophils % 2.6 Basophils % 0.7 Sodium 137 Potassium 3.9 Chloride 99 Carbon Dioxide 30 Anion Gap 8 BUN 4.0 L Creatinine 0.6 Est GFR (CKD-EPI)AfAm 120.61 Est GFR (CKD-EPI)NonAf 104.06 POC Glucometer 187 Random Glucose 152 H Calcium 9.7 Magnesium 2.0 HOSPITAL COURSE: Date of Admission:04/27/19 Date of Discharge: 04/30/19 Minutes to complete discharge: 48 Discharge Summary Problems reviewed: Yes Reason For Visit: DIVERTICULITIS Current Active Problems Acute diverticulitis (Acute) Diabetes type 2, controlled (Chronic) Hypertension (Chronic) Hypothyroidism (Chronic) Hospital Course: 53F with history of HTN, hypothyroidism, DM2, and diverticulitis in the past presented to the hospital with a 3 day history of diffuse lower abdominal pain. She was found to have diverticulitis of the sigmoid colon on CTAP with a small phelgmon vs abscess. She was started on Zosyn and has been improving since admission. Possible patient is not compliant with medications as she has not had PCP follow up and has run out of medications at home. Her BP has been uncontrolled and she was started on HCTZ 25mg po daily. Her BP is better and no longer in the 180s systolic. Patient was offered to stay thru the weekend until at least Thursday to continue IV ABx. After discussion with both Dr. Altman from ID and Dr. Crouch from General surgery the patient will be advanced to regular diet and if she tolerates she will be discharged with 12 days of augmentin 875mg po BID. She was informed of the risks of being discharged and benefits of staying in the hospital on IV Abx. She wanted to leave. Gave her follow up with Dr. Mitchell from GI, Dr. Crouch from gen surgery, and Dr. Galvez for the resident primary care clinic. importance of compliance and preventative care explained. She will need follow up CT scan and likely colonoscopy in the future. I spent over 35 minutes discussing the importance of follow up and compliance. All questions answered and concerns addressed. Condition: Improved - Instructions Diet, Activity, Other Instructions: If you have worsening of your symptoms such as nausea vomiting fever chills abdominal pain diarrhea please go to the nearest emergency room. You must take the antibiotics to completion. Please make an appointment with the resident clinic to establish primary care. The phone number is under Dr. Galvez. Please make an appointment with the rn wound care. You will need to have a follow up CT scan. You will also need to have a colonoscopy eventually. Take all your medications as prescribed. Take the antibiotics to completion. It was a pleasure caring for you Dr. Natan Escalante Referrals: Kalia Galvez MD [Staff Physician] - 1 Week (This is the primary care doctor referral. Please call to make appointment with the resident clinic) Tyrone Mitchell DO [Staff Physician] - 1 Month (please call to make an appointment. this is the Address Change Clerk ) Jose Forte MD [Staff Physician] - 2 Weeks (Surgeon) Disposition: HOME - Home Medications Comprehensive Discharge Medication List: Ambulatory Orders Amox-Tr/K Cl [Augmentin - 875Mg Tablet] 1 tab PO BID #24 tablet 04/30/19 Hydrochlorothiazide [Hctz -] 25 mg PO DAILY #30 tablet 04/30/19 Lansoprazole [Prevacid] 40 mg PO DAILY #30 capsule. 04/30/19 Levothyroxine [Synthroid -] 50 mcg PO DAILY@0700 #30 tablet 04/30/19 Lisinopril [Zestril] 40 mg PO DAILY #30 tablet 04/30/19 metFORMIN HCL [Metformin HCl] 500 mg PO BID #60 tablet 04/30/19 This patient is new to me today: No Emergency Visit: Yes ED Registration Date: 04/27/19 Care time: The patient presented to the Emergency Department on the above date and was hospitalized for further evaluation of their emergent condition. Critical Care patient: No - Discharge Referral Referred to [facility] Med [facility] Yes Physician Referral: Kamaljit Mitchell DO (GI) (also referred to resident clinic)
== END 2019-04-30 14:00 | disposition home or self-care (01) | DRG 392 ==
LOC: FER 15:12 → FM/S 21:26 → UNDOADMIN 22:26 → FM/S 04-28 07:19 → UNDOADMIN 04-28 07:19
PROVIDERS: ADMIT Internal Medicine; ATTEND Internal Medicine
DX: K57.20 Diverticulitis of large intestine with perforation and abscess without bleeding (principal); E87.6 Hypokalemia; E83.42 Hypomagnesemia; I10 Essential (primary) hypertension; E11.9 Type 2 diabetes mellitus without complications; E03.9 Hypothyroidism, unspecified; F17.210 Nicotine dependence, cigarettes, uncomplicated; Z79.84 Long term (current) use of oral hypoglycemic drugs
CPT/HCPCS: 36415; 71045-TC-FY; 74176-TC; 80048; 80053; 81003; 82962; 83605; 83690; 83735; 84703; 85025; 85610; 85730; 86850; 86900; 86901; 87040; 87086; 93005; 99285-25; J0131; J1644; J7030

== ENCOUNTER 2020-08-13 22:00 | Emergency (ER) | payer OTHER ==
[2020-08-13 22:15] VITALS: BP 131/80; PULSE 85; TEMP 99; BMI 35.4
[2020-08-14 00:26] LABS: BASO % 1.1 % (0-2.0); EOS % 1.5 % (0-4.5); HEMATOCRIT 37.7 % (32.4-45.2); HEMOGLOBIN 12.7 GM/dL (10.7-15.3); LYMPH % 40.3 % (8-40); MCH 31.5 pg (25.7-33.7); MCHC 33.6 g/dl (32.0-36.0); MEAN CELL VOLUME 93.8 fl (80-96); MEAN PLT VOLUME 8.2 fl (7.5-11.1); MONO % 5.1 % (3.8-10.2); PLATELET COUNT 251 K/MM3 (134-434); RBC 4.02 M/mm3 (3.60-5.2); RDW 16.5 % (11.6-15.6); WHITE BLOOD COUNT 6.7 K/mm3 (4.0-10.0)
[2020-08-14 00:42] LABS: CHLORIDE 102 mmol/L (98-107); SODIUM 141 mmol/L (136-145)
[2020-08-14 00:44] LABS: CALCIUM 9.5 mg/dL (8.5-10.1)
[2020-08-14 00:45] LABS: ALBUMIN 3.4 g/dl (3.4-5.0); ANION GAP 9 MMOL/L (8-16); BLOOD UREA NITROGEN 6.6 mg/dL (7-18); CO2 30 mmol/L (21-32); GLUCOSE,RANDOM 258 mg/dL (74-106)
[2020-08-14 00:48] LABS: CREATININE 0.7 mg/dL (0.55-1.3); SGOT/AST 24 U/L (15-37); SGPT/ALT 27 U/L (13-61)
[2020-08-14 00:50] LABS: BILIRUBIN,TOTAL 0.2 mg/dL (0.2-1); TOT PROT 6.2 g/dl (6.4-8.2)
[2020-08-14 00:51] LABS: ALK PHOS 74 U/L (45-117)
[2020-08-14] MEDS ORDERED: ALBUTEROL SO4 2.5/IPRATROPIUM 0.5 INH SOL 3 ML VIAL.NEB. NEB ONE ×2 (01:16→01:19)
[2020-08-14] MEDS ORDERED: POTASSIUM CHLORIDE TABS 20 MEQ TABLET.ER (FP) PO ONE ×2 (01:33→01:58)
== END 2020-08-14 02:56 | disposition home or self-care (01) ==
LOC: FER 22:00
PROC: 3E0F7GC Introduction of Other Therapeutic Substance into Respiratory Tract, Via Natural or Artificial Opening (ICD-10-PCS; principal; 2020-08-13)
PROC: 3E03329 Introduction of Other Anti-infective into Peripheral Vein, Percutaneous Approach (ICD-10-PCS; 2020-08-13)
DX: J20.9 Acute bronchitis, unspecified (principal)
CPT/HCPCS: 36415; 71046-TC-FY; 80053; 82550; 84484; 85025; 93005; 99285-25